=== PATIENT | female | born 1955 | race Caucasian/White ===

== ENCOUNTER 2017-02-06 22:03 | Emergency (ER) | payer SELFPAY ==
[2017-02-06] MEDS ORDERED: ASPIRIN (CHEWABLE) 81 MG TAB PO ONE (22:14)
--- NOTE | 2017-02-06 22:20 | ED.PDOC ---
History of Present Illness - General Chief Complaint: Cardiovascular Problem Stated Complaint: chest pain Time Seen by Provider: 02/06/17 22:13 Source: patient Exam Limitations: no limitations - History of Present Illness Initial Comments: Patient presents with chest pain for 2 hours. Mid-sternal, non-radiating, constant, "tight" in nature, similar to previous episodes when she has had a heart attack. She says she has had 11 of them and had multiple stents, the last being 3 in February of 2015. She has a "burning" sensation on top of her head right now that radiates to her neck. No dyspnea. No other complaints. Timing/Duration: 1-3 hours Severity: moderate Improving Factors: nothing Worsening Factors: nothing Associated Symptoms: other - see HPI Allergies/Adverse Reactions: Allergies Ketorolac Tromethamine [From Toradol] Allergy (Verified 02/06/17 22:32) Tramadol Allergy (Verified 02/06/17 22:32) Review of Systems - Review of Systems Constitutional: States: no symptoms reported EENTM: States: no symptoms reported Respiratory: States: no symptoms reported Cardiology: States: see HPI Gastrointestinal/Abdominal: States: no symptoms reported Genitourinary: States: no symptoms reported Musculoskeletal: States: no symptoms reported Skin: States: no symptoms reported Neurological: States: no symptoms reported Endocrine: States: no symptoms reported Hematologic/Lymphatic: States: no symptoms reported Family Medical History - Family History Mother Family History: Unknown Living Status: Still Living Physical Exam - Physical Exam General Appearance: Alert Respiratory: lungs clear Cardiovascular/Chest: normal peripheral pulses, regular rate, rhythm, no edema Gastrointestinal/Abdominal: normal bowel sounds, non tender, soft Skin Exam: normal color Progress - Progress Progress: 02/06/17 23:53 EKG read by me showed NSR with no ST changes nor T wave inversions. No LBBB. Troponin .19 Patient given ASA 324 mg po upon arrival. Nitropast 1 inch helped relieve the pain somewhat. Nitrodrip start at 20 mcg/min. Heparin 5000 IU bolus x one then 1000 IU/hr. Plavix 300 mg po x one. Atorvastatin 80 mg po x one. Patient transferred to [facility] in [place] where her cardiology group is. Dr. Bruner accepting physician. Departure - Departure Clinical Impression: NSTEMI (non-ST elevated myocardial infarction) Disposition: Transfer to Hospital Condition: Fair Diet: other - NPO
[2017-02-06 22:35] VITALS: O2SAT 96
[2017-02-06] MEDS ORDERED: NITROGLYCERIN 2% 1 GM UD TOP ONE (22:39)
[2017-02-06] MEDS ORDERED: CLOPIDOGREL 75 MG TAB PO ONE (23:01)
[2017-02-06] MEDS ORDERED: ATORVASTATIN 20 MG TAB PO ONE (23:01)
--- NOTE | 2017-02-06 23:02 | RAD ---
EXAM DESCRIPTION: Chest,1 View CLINICAL HISTORY: 61 years Female chest pain COMPARISON: None. FINDINGS: Cardiac enlargement. Increased density over the lower lung [place] likely reflects overlying soft tissue artifact. No evidence of acute consolidation or pneumothorax. Degenerative changes in the spine IMPRESSION: Cardiomegaly without evidence of acute process Increased density over the lower lobes likely secondary to overlying soft tissue Electronically signed by: Isabell Lugo 02/06/2017 11:01 PM CDT
[2017-02-06] MEDS ORDERED: HEPARIN SODIUM (PORCINE) 5,000 U/ML VIAL IV ONE (23:03)
[2017-02-06] MEDS ORDERED: HEPARIN PREMIX 25,000 UNITS in PREMIX BAG 1 BAG IVS SCH (23:15)
[2017-02-06] MEDS ORDERED: NITROGLYCERIN/D5W IV 250 ML IVS ONE (23:26)
[2017-02-06] MEDS ORDERED: SODIUM CHLORIDE 0.9% 1000ML 1,000 ML ONE (23:30)
[2017-02-06] MEDS ORDERED: NITROGLYCERIN/D5W IV 50,000 MCG in PREMIX BOTTLE 1 BOTTLE IVS SCH (23:30)
[2017-02-06] MEDS ORDERED: HEPARIN PREMIX 500 ML ONE (23:37)
[2017-02-07 01:05] VITALS: BP 161/85; TEMP 99.2
== END 2017-02-07 00:50 | disposition short-term general hospital (02) ==
LOC: ER 22:03
DX: I21.4 Non-ST elevation (NSTEMI) myocardial infarction (principal); Z88.6 Allergy status to analgesic agent
CPT/HCPCS: 36415; 71010; 80053; 82550; 82553; 83880; 84484; 85025; 85610; 85730; J1644; J7030